=== PATIENT | male | born 1990 | race Caucasian/White ===

== ENCOUNTER 2017-04-25 13:46 | Emergency (ER) | payer BC ==
[~2017-04-25] VITALS: Ht 180.3 cm; Wt 99.0 kg
[2017-04-25 13:51] VITALS: TEMP 36.7; Ht 180.3 cm; Wt 99.0 kg
[2017-04-25] MEDS ORDERED: HYDROCODONE/ACETAMOPHEN 5/325MG TAB PO STA (14:00)
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
[2017-04-25] MEDS ORDERED: OXYCODONE HCL IR 5 MG TAB (IMMEDIATE RELEASE) PO STA (14:55)
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
[2017-04-25] MEDS ORDERED: CEPH500C2 PO (15:08)
[2017-04-25] MEDS ORDERED: OXYC1TAB3 PO (15:08)
[2017-04-25 15:20] VITALS: BP 148/80; PULSE 69; O2SAT 97
== END 2017-04-25 15:17 | disposition home or self-care (01) ==
LOC: C.EDB 13:48 → C.EDD 15:17
DX: S92.401A Displaced unspecified fracture of right great toe, initial encounter for closed fracture (principal); W23.0XXA Caught, crushed, jammed, or pinched between moving objects, initial encounter; Y93.55 Activity, bike riding